=== PATIENT | male | born 1975 | race Caucasian/White ===

== ENCOUNTER 2017-03-14 15:14 | Emergency (ER) | payer SELFPAY ==
[2017-03-14 15:21] VITALS: BP 142/103
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
== END 2017-03-14 16:18 | disposition home or self-care (01) ==
LOC: UCEAST 15:14
DX: S80.11XA Contusion of right lower leg, initial encounter (principal); S80.811A Abrasion, right lower leg, initial encounter; I10 Essential (primary) hypertension; K21.9 Gastro-esophageal reflux disease without esophagitis; W22.8XXA Striking against or struck by other objects, initial encounter
CPT/HCPCS: 99202; G0463

== ENCOUNTER 2017-03-26 14:30 | Emergency (ER) | payer SELFPAY ==
[2017-03-26 14:39] VITALS: BP 132/87
[2017-03-26] MEDS ORDERED: Tetan/Diph/Pertus SYR(Tdap)* 0.5 ML SYR(BOOSTRIX) use SYR IM ONE (14:50)
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
--- NOTE | 2017-03-26 16:01 | RAD ---
HISTORY: Left lower extremity trauma and pain COMPARISONS: None relevant TECHNIQUE: Multiple transverse and longitudinal ultrasound images were obtained of the left lower extremity from the level of the common femoral vein inferiorly through to the infrapopliteal veins using grayscale, color Doppler, and spectral Doppler imaging with and without compression and with augmentation. Comparison images were obtained of the contralateral common femoral vein. FINDINGS: VEINS: The venous system of the left lower extremity is compressible throughout its course, with normal flow on color Doppler imaging and normal response to augmentation on spectral Doppler imaging. SOFT TISSUES: There is subcutaneous edema at the site of injury of the left calf. OTHER FINDINGS: None. IMPRESSION: NO LEFT LOWER EXTREMITY DEEP VEIN THROMBOSIS
== END 2017-03-26 16:25 | disposition home or self-care (01) ==
LOC: UCEAST 14:30
DX: S80.12XA Contusion of left lower leg, initial encounter (principal); E78.5 Hyperlipidemia, unspecified; K21.9 Gastro-esophageal reflux disease without esophagitis; W22.09XA Striking against other stationary object, initial encounter
CPT/HCPCS: 90471; 90715; 99211; G0463

== ENCOUNTER 2017-06-19 10:03 | Emergency (ER) | payer OTHER ==
[2017-06-19] MEDS ORDERED: Al Hydrox/Mg Hydrox/Simet LIQ* 30 ML UDC PO ONE (10:48)
[2017-06-19] MEDS ORDERED: Lidocaine 2% VISCOUS* 15 ML UDC PO ONE (10:48)
[2017-06-19] MEDS ORDERED: Glucagon* 1 MG VIAL IV ONE (11:08)
[2017-06-19] MEDS ORDERED: Pantoprazole IV* 40 MG IV ONE (11:08)
[2017-06-19 14:17] VITALS: BP 124/61
--- NOTE | 2017-06-19 16:39 | ED ---
Jose Aldana Gabriel, scribed for Meir Richard MD on 06/19/17 at 1050 . GI/ HPI - HPI Summary HPI Summary: This patient is a 42 year old M presenting to [facility] accompanied by family with a chief complaint of acid reflux since 9:00. Pt was having lunch when he started having difficulty swallowing and is currently unable to swallow his own spit. The patient rates the pain 4/10 in severity - History of Current Complaint Chief Complaint: EDGeneral Time Seen by Provider: 06/19/17 10:28 Stated Complaint: POSS ACID REFLUX Hx Obtained From: Patient Onset/Duration: Started Hours Ago - 9:00, Still Present Current Severity: Moderate Pain Intensity: 4 Associated Signs and Symptoms: Positive: Other: - difficulty swallowing Aggravating Factor(s): Food Alleviating Factor(s): Nothing - Allergy/Home Medications Allergies/Adverse Reactions: Allergies Allergy/AdvReac Type Severity Reaction Status Date / Time No Known Allergies Allergy Verified 03/26/17 14:39 Home Medications: Home Medications Ibuprofen TAB* [Motrin TAB* 800 MG] 800 mg PO Q8H PRN 06/19/17 [History Confirmed 06/19/17] amLODIPine TAB* [Norvasc 5 mg TAB*] 5 mg PO DAILY 06/19/17 [History Confirmed ] PMH/Surg Hx/FS Hx/Imm Hx Previously Healthy: No Endocrine/Hematology History: Denies: Hx Diabetes Cardiovascular History: Reports: Hx Hypertension GI History: Reports: Hx Gastroesophageal Reflux Disease - Surgical History Surgery Procedure, Year, and Place: elbow. hernia - Immunization History Date of Tetanus Vaccine: Unk Date of Influenza Vaccine: None Infectious Disease History: No Infectious Disease History: Denies: Traveled Outside the [place] in Last 30 Days - Family History Known Family History: Positive: Diabetes, Other - cancer Family History: no medical issues reported in family lineage - Social History Occupation: Employed Full-time - Works at [employer] Alcohol Use: Rare Substance Use Type: Reports: None Smoking Status (MU): Never Smoked Tobacco Review of Systems Positive: Other - increased acid reflux and difficulty swallowing Negative: Slurred Speech All Other Systems Reviewed And Are Negative: Yes Physical Exam - Summary Physical Exam Summary: Appearance: Moderate distress Eyes: Normal, Conjunctiva clear ENT: Normal ENT inspection. Dental: Normal Neck: Supple, non-tender, no lymphadenopathy Lungs: Lungs clear, normal breath sounds, no respiratory distress, no accessory muscle use. Heart: RRR, no murmur, pulses normal. Abdomen: Nontender, soft. Musculoskeletal: Normal Neurological: Normal Psychiatric: Normal Skin: Normal Triage Information Reviewed: Yes Vital Signs On Initial Exam: Initial Vitals Temp Pulse Resp BP Pulse Ox 99.0 F 68 18 142/97 98 06/19/17 10:06 06/19/17 10:06 06/19/17 10:06 06/19/17 10:06 06/19/17 10:06 Vital Signs Reviewed: Yes - [place] Coma Scale Coma Scale Total: 15 Diagnostics - Vital Signs Vital Signs Temp Pulse Resp BP Pulse Ox 06/19/17 10:06 99.0 F 68 18 142/97 98 - Laboratory Lab Statement: Any lab studies that have been ordered have been reviewed, and results considered in the medical decision making process. Re-Evaluation - Re-Evaluation Re-eval after GI cocktail Re-Evaluation Time: 13:45 Change: Improved Comment: Patient is completely better after the cocktail GIGU Course/Dx - Course Course Of Treatment: Mr. Hwang presented without a FB sensation but with the inability to manage his secretions which he referred to as reflux. He couldn't keep a GI cocktail down and it didn't affedt his symptoms. He was given glucagon which didn't seem to help. Dr. Donnelly was contacted and agreed to see him but he then suddenly improved and was able to drink. - Diagnoses Provider Diagnoses: Esophageal foreign body - Physician Notifications Discussed Care Of Patient With: Opal Donnelly Time Discussed With Above Provider: 13:30 - I discussed patient care with Opal Donnelly. Discharge - Discharge Plan Condition: Stable Disposition: HOME Patient Education Materials: Esophageal Foreign Body (ED) Referrals: Billy Vallejo MD [Primary Care Provider] - Additional Instructions: Follow up with a [facility]ste[facility] Helper in 3-4 days. RETURN TO THE EMERGENCY DEPARTMENT FOR CHANGING OR WORSENING SYMPTOMS. The documentation as recorded by the Jose coleman Gabriel accurately reflects the service I personally performed and the decisions made by me, Meir Richard MD.
== END 2017-06-19 14:17 | disposition home or self-care (01) ==
LOC: ED 10:03
DX: T18.108A Unspecified foreign body in esophagus causing other injury, initial encounter (principal); X58.XXXA Exposure to other specified factors, initial encounter; Y93.9 Activity, unspecified; Y92.9 Unspecified place or not applicable
CPT/HCPCS: 99283; A9270-GY; J1610